=== PATIENT | male | born 1970 | race Caucasian/White ===

== ENCOUNTER 2017-01-10 13:19 | Emergency (ER) | payer OTHER ==
[~2017-01-10] VITALS: Ht 172.7 cm; Wt 96.0 kg
[2017-01-10 13:20] VITALS: BP 116/74; PULSE 74; RESP 20; TEMP 97.7; O2SAT 97
--- NOTE | 2017-01-10 13:31 | PD ---
Physical Exam Date Seen by Provider: January 10, 2017 Time Seen by Provider: 13:28 Narrative 46 year old male presents to the emergency department for evaluation of right groin pain that started today upon standing. He reports history of appendectomy. Pain is 1/10 when sitting, 9-10/10 upon standing. No history of nephrolithiasis. Vital signs reviewed. Patient seen in triage, waiting for bed placement. Data Data Last Documented VS Vital Signs Date Time Temp Pulse Resp B/P Pulse Ox O2 Delivery O2 Flow Rate FiO2 01/10/17 13:20 97.7 74 20 116/74 97 Room Air [facility] Supervised Visit with NAYAN: Maryuri Tirado January 10, 2017 13:31
--- NOTE | 2017-01-10 13:56 | PD ---
HPI Chief Complaint: Injury Time Seen by Provider: 13:53 Travel History International Travel<30 days: No Contact w/Intl Traveler<30days: No Traveled to known affect area: No History of Present Illness HPI 46-year-old male with history of previous appendectomy, presents to the ER today because of sudden onset of right groin pain that started as she was getting up out of the car. He states initially it was 9 out of 10 but gets better when he sits down. He states that it seems to be specific to standing up. He denies significant pain currently. He denies any nausea, vomiting, urinary symptoms, fevers, or any other issues. Modifying Factors: Worse with movement and standing Associated Signs & Symptoms: Right groin pain Risk Factors: None PFSH Social History Alcohol Use: No Tobacco Use: No Substance Use: No Allergies-Medications (Allergen,Severity, Reaction): Coded Allergies: No Known Allergies (Unverified , 01/10/17) Reported Meds & Prescriptions Reported Meds & Active Scripts Active No Active Prescriptions or Reported Medications Review of Systems Except as stated in HPI: all other systems reviewed are Neg Physical Exam Narrative GENERAL: Well-developed middle aged male patient in no acute distress. Awake and oriented 3. SKIN: Focused skin assessment warm/dry. HEAD: Atraumatic. Normocephalic. EYES: Pupils equal and round. No scleral icterus. No injection or drainage. ENT: No nasal bleeding or discharge. Mucous membranes pink and moist. NECK: Trachea midline. No JVD. CARDIOVASCULAR: Regular rate and rhythm. No murmur appreciated. RESPIRATORY: No accessory muscle use. Clear to auscultation. Breath sounds equal bilaterally. GASTROINTESTINAL: Abdomen soft, mild right medial inguinal area tenderness without obvious deformities, no guarding or rebound, nondistended. Hepatic and splenic margins not palpable. GENITOURINARY: Not Circumcised. Testes descended bilaterally without evidence of rotation. No lesions or erythema. No urethral discharge. MUSCULOSKELETAL: No obvious deformities. No clubbing. No cyanosis. No edema. NEUROLOGICAL: Awake and alert. No obvious cranial nerve deficits. Motor grossly within normal limits. Normal speech. PSYCHIATRIC: Appropriate mood and affect; insight and judgment normal. Data Data Last Documented VS Vital Signs Date Time Temp Pulse Resp B/P Pulse Ox O2 Delivery O2 Flow Rate FiO2 01/10/17 14:51 16 01/10/17 14:03 100 Room Air 01/10/17 13:20 97.7 74 116/74 Orders Complete Blood Count With Diff (01/10/17 13:53) Comprehensive Metabolic Panel (01/10/17 13:53) Urinalysis - C+S If Indicated (01/10/17 13:53) Ct Abd/Pel W/O Iv Contrast (01/10/17 13:53) Iv Access Insert/Monitor (01/10/17 13:53) Ecg Monitoring (01/10/17 13:53) Oximetry (01/10/17 13:53) Sodium Chloride 0.9% Flush (Ns Flush) (01/10/17 14:00) Ketorolac Inj (Toradol Inj) (01/10/17 14:00) Labs Laboratory Tests Test 01/10/17 14:01 White Blood Count 7.3 TH/MM3 Red Blood Count 5.00 MIL/MM3 Hemoglobin 14.7 GM/DL Hematocrit 42.8 % Mean Corpuscular Volume 85.5 FL Mean Corpuscular Hemoglobin 29.4 PG Mean Corpuscular Hemoglobin 34.4 % Concent Red Cell Distribution Width 12.2 % Platelet Count 257 TH/MM3 Mean Platelet Volume 8.3 FL Neutrophils (%) (Auto) 56.6 % Lymphocytes (%) (Auto) 33.4 % Monocytes (%) (Auto) 5.5 % Eosinophils (%) (Auto) 3.8 % Basophils (%) (Auto) 0.7 % Neutrophils # (Auto) 4.1 TH/MM3 Lymphocytes # (Auto) 2.4 TH/MM3 Monocytes # (Auto) 0.4 TH/MM3 Eosinophils # (Auto) 0.3 TH/MM3 Basophils # (Auto) 0.1 TH/MM3 CBC Comment DIFF FINAL Differential Comment Urine Color YELLOW Urine Turbidity CLEAR Urine pH 6.5 Urine Specific [place] 1.016 Urine Protein NEG mg/dL Urine Glucose (UA) NEG mg/dL Urine Ketones NEG mg/dL Urine Occult Blood NEG Urine Nitrite NEG Urine Bilirubin NEG Urine Urobilinogen LESS THAN 2.0 MG/DL Urine Leukocyte Esterase NEG Urine RBC LESS THAN 1 /hpf Urine Mucus FEW /lpf Microscopic Urinalysis Comment CULT NOT INDICATED Sodium Level 138 MEQ/L Potassium Level 3.8 MEQ/L Chloride Level 103 MEQ/L Carbon Dioxide Level 28.6 MEQ/L Anion Gap 6 MEQ/L Blood Urea Nitrogen 17 MG/DL Creatinine 1.00 MG/DL Estimat Glomerular Filtration 81 ML/MIN Rate Random Glucose 96 MG/DL Calcium Level 9.0 MG/DL Total Bilirubin 0.6 MG/DL Aspartate Amino Transf 25 U/L (AST/SGOT) Alanine Aminotransferase 55 U/L (ALT/SGPT) Alkaline Phosphatase 65 U/L Total Protein 7.7 GM/DL Albumin 4.3 GM/DL MDM Medical Decision Making Medical Screen Exam Complete: Yes Emergency Medical Condition: Yes Medical Record Reviewed: Yes Interpretation(s) Laboratory Tests Test 01/10/17 14:01 Urine Mucus FEW /lpf (OCC) Estimat Glomerular Filtration 81 ML/MIN (>89) Rate Last 24 hours Impressions Abdomen/Pelvis CT 01/10/17 1353 Signed Impressions: Service Date/Time: Tuesday, January 10, 2017 14:55 - CONCLUSION: 1. No acute findings on abdomen pelvic CT. Herniation of fat into the inguinal canals bilaterally. No renal calculi or obstructive uropathy. Niles Guerrero MD Differential Diagnosis Right groin painstrain versus renal colic versus inguinal hernia versus testicular torsion Narrative Course Abdomen is benign and I do not suspect an acute intra-abdominal process. Lab work is otherwise unremarkable. CT of the abdomen did not reveal any signs of acute processes, no kidney stones. He does have some signs of fat herniation into the inguinal canals. I am uncertain whether this is the cause. However, the patient is symptom-free currently and at this point, my plan would be to release him with follow-up to primary care physician. Return for worsening in pain or new symptoms as needed. The plan has been discussed with him and he states understanding. Diagnosis Primary Impression: Right inguinal pain Scripts No Active Prescriptions or Reported Meds Disposition: DISCHARGE HOME Condition: Stable [place] Cordon MD January 10, 2017 13:56
[2017-01-10] MEDS ORDERED: SODIUM CHLORIDE 0.9% FLUSH 10 ML FLUSH IV FLUSH PRN (14:00)
[2017-01-10] MEDS ORDERED: KETOROLAC TROMETHAMINE 30 MG/ML (IVP) VIAL IVP ONE (14:00)
[2017-01-10 14:03] VITALS: O2SAT 100
[2017-01-10 14:17] LABS: AUTOMATED NEUTROPHIL # 4.1 TH/MM3 (1.8-7.7); BASOPHIL # 0.1 TH/MM3 (0-0.2); BASOPHIL % 0.7 % (0.0-2.0); EOSINOPHIL # 0.3 TH/MM3 (0-0.4); EOSINOPHIL % 3.8 % (0.0-4.0); HEMATOCRIT 42.8 % (39.0-51.0); HEMO FLAGS DIFF FINAL; LYMPH % 33.4 % (9.0-44.0); LYMPHOCYTE # 2.4 TH/MM3 (1.0-4.8); MEAN CELL VOLUME 85.5 FL (80.0-100.0); MEAN CORPUSCULAR HEMOGLOBIN 29.4 PG (27.0-34.0); MEAN CORPUSCULAR HGB CONC 34.4 % (32.0-36.0); MONO % 5.5 % (0.0-8.0); NEUT % 56.6 % (16.0-70.0); PLATELET COUNT 257 TH/MM3 (150-450); RED CELL DISTRIBUTION WIDTH 12.2 % (11.6-17.2); WHITE BLOOD COUNT 7.3 TH/MM3 (4.0-11.0)
[2017-01-10 14:24] LABS: BLOOD, URINE NEG (NEG); COMMENT (UR) CULT NOT INDICATED; CULTURE IF INDICATED CULT NOT INDICATED; GLUCOSE,URINE NEG (NEG); KETONE, URINE NEG (NEG); MUCUS URINE FEW /lpf (OCC); NITRITE,URINE NEG (NEG); PH, URINE 6.5 (5.0-8.5); URINE COLOR YELLOW (YELLW/STRAW)
[2017-01-10 14:32] LABS: ANION GAP 6 MEQ/L (5-15); AST (GOT) 25 U/L (15-37); BICARBONATE 28.6 MEQ/L (21.0-32.0); BLOOD UREA NITROGEN 17 MG/DL (7-18); CHLORIDE 103 MEQ/L (98-107); GLOMERULAR FILTRATION RATE 81 ML/MIN (>89); POTASSIUM 3.8 MEQ/L (3.5-5.1); SODIUM (NA) 138 MEQ/L (136-145)
[2017-01-10 14:35] LABS: ALKALINE PHOSPHATASE 65 U/L (45-117); ALT (GPT) 55 U/L (12-78); TOTAL BILIRUBIN ADULT 0.6 MG/DL (0.2-1.0)
[2017-01-10 14:51] VITALS: RESP 16
--- NOTE | 2017-01-10 15:13 | RADRPT ---
EXAM DATE/TIME: 01/10/2017 14:55 [facility] COMPARISON: No previous studies available for comparison. INDICATIONS : Right sided groin pain today. ORAL CONTRAST: No oral contrast ingested. RADIATION DOSE: 17.2 CTDIvol (mGy) MEDICAL HISTORY : None SURGICAL HISTORY : Appendectomy. ENCOUNTER: Initial ACUITY: 1 day PAIN SCALE: 5/10 LOCATION: Right lower quadrant TECHNIQUE: Volumetric scanning of the abdomen and pelvis was performed. Using automated exposure control and ad justment of the mA and/or kV according to patient size, radiation dose was kept as low as reasonably achievable to obtain optimal diagnostic quality images. FINDINGS: Lung bases are clear. No acute findings in the liver, spleen, adrenals, kidneys or pancreas. No galls tones or biliary ductal dilatation. There is no free fluid. No bowel obstruction. No adenopathy. The no acute bony abnormalities. There is herniation of fat into the inguinal canal bilaterally slight right side. No inguinal herniat ion of bowel. There are venous vascular calcifications in the pelvis. CONCLUSION: 1. No acute findings on abdomen pelvic CT. Herniation of fat into the inguinal canals bilaterally. No renal calculi or obstructive uropathy. Niles Guerrero MD on January 10, 2017 at 15:05 Board Certified Radiologist. This report was verified electronically.
== END 2017-01-10 15:38 | disposition home or self-care (01) ==
LOC: NEPD 13:19
DX: R10.31 Right lower quadrant pain (principal)
CPT/HCPCS: 74176; 80053; 81001; 85025; 96374; 99284; J1885